=== PATIENT | male | born 1960 | race Caucasian/White ===

== ENCOUNTER 2017-07-12 10:52 | Inpatient (IN) | payer MEDICAID ==
[2017-07-12] MEDS: SODIUM CHLORIDE 0.9% 1L BAG IV* (12:06)
[2017-07-12] MEDS: ACETAMINOPHEN 325 MG TAB PO ×2 (12:12→17:49)
[2017-07-12 12:15] LABS: WHITE BLOOD COUNT 22.6 10^3/ul (4.8-10.8)
[2017-07-12 12:15] LABS: ABNORMAL IP MESSAGE 1; HEMATOCRIT 38.3 % (42.0-52.0); HEMOGLOBIN 13.9 g/dl (14.0-18.0); MEAN CORPUSCULAR HEMOGLOBIN 30.9 pg (29.0-33.0); MEAN CORPUSCULAR HGB CONC 36.3 g/dl (32.0-37.0); MEAN CORPUSCULAR VOLUME 85.1 fl (82.0-101.0); MEAN PLATELET VOLUME 10.4 fl (7.4-10.4); PLATELET COUNT 188 10^3/UL (140-415); POSITIVE DIFF @See below; RED CELL DISTRIBUTION WIDTH 13.3 % (11.5-14.5)
[2017-07-12 12:18] LABS: ADD MAN DIFF? YES
[2017-07-12 12:25] LABS: ADD UMIC YES; UR ASCORBIC ACID 20 mg/dL (NEGATIVE); UR BACTERIA FEW /HPF (NONE SEEN); UR BILIRUBIN (Dip) NEGATIVE (NEGATIVE); UR BLOOD (Dip) 3+ mg/dL (NEGATIVE); UR CLARITY TURBID (CLEAR); UR COLOR AMBER (YELLOW); UR GLUCOSE (Dip) 1+ mg/dL (NEGATIVE); UR KETONES (Dip) TRACE mg/dL (NEGATIVE); UR LEUKOCYTE ESTERASE (Dip) 2+ Leu/ul (NEGATIVE); UR MUCUS MANY /HPF (NONE SEEN); UR NITRITE (Dip) NEGATIVE (NEGATIVE); UR NONSQUAMOUS EPITHELIAL CELL 2 /HPF (NONE SEEN); UR RBC 55 /HPF (0-5); UR SPECIFIC GRAVITY (Dip) 1.026 (1.003-1.030); UR TOTAL PROTEIN (Dip) 2+ mg/dl (NEGATIVE); UR UROBILINOGEN (Dip) 1+ mg/dL (NEGATIVE); UR WBC > 182 /HPF (0-5)
[2017-07-12 12:27] LABS: INR 1.09; PROTIME 14.2 Sec (11.9-14.9); PT RATIO 1.1
[2017-07-12 12:29] LABS: PARTIAL THROMBOPLASTIN TIME 33.7 Sec (25.0-35.0)
[2017-07-12 12:33] LABS: ALANINE AMINOTRANSFERASE 89 IU/L (13-69); ALBUMIN 4.4 g/dl (3.3-4.9); ALBUMIN/GLOBULIN RATIO 1.22; ALKALINE PHOSPHATASE 112 IU/L (42-121); ANION GAP 17 (8-16); ASPARTATE AMINO TRANSFERASE 36 IU/L (15-46); BILIRUBIN,INDIRECT 1.6 mg/dl (0-1.1); BILIRUBIN,TOTAL 1.6 mg/dl (0.2-1.3); BLOOD UREA NITROGEN 10 mg/dl (7-20); CARBON DIOXIDE 20 mmol/L (21-31); CHLORIDE 105 mmol/L (97-110); CREATININE 0.88 mg/dl (0.61-1.24); GLUCOSE 159 mg/dl (70-220); SODIUM 139 mmol/L (135-144)
[2017-07-12 12:36] LABS: ANISOCYTOSIS 1+ (0-0); BAND NEUTROPHILS #M 6.1 10^3/ul (0.0-0.6); BAND NEUTROPHILS % (M) 27 % (0-4); GIANT THROMBO% (M) 2 % (0-0); LYMPHOCYTES #M 2.2 10^3/ul (0.8-2.9); LYMPHOCYTES % (M) 10 % (15-51); MICROCYTOSIS 1+ (0-0); MONOCYTE #M 0.2 10^3/ul (0.3-0.9); MONOCYTES % (M) 1 % (0-11); PLATELET ESTIMATE NORMAL; POLYCHROMASIA 1+ (0-0); SEG NEUT #M 15.4 10^3/ul (1.6-7.5); SEGMENTED NEUTROPHILS (M) % 62 % (39-77); SMUDGE%M 10 % (0-0)
[2017-07-12 12:53] LABS: POTASSIUM 2.9 mmol/L (3.5-5.1); TROPONIN-I < 0.012 ng/ml (0.00-0.12)
[2017-07-12 12:54] LABS: LACTIC ACID 3.5 mmol/L (0.5-2.0)
[2017-07-12] MEDS: CEFTRIAXONE 1 GM/50 ML (PMX) 50 ML IVPB (13:09)
[2017-07-12] MEDS: POTASSIUM CHLORIDE (SR) 20 MEQ TAB PO (13:48)
[2017-07-12] MEDS: ONDANSETRON 4 MG INJ IV (13:48)
[2017-07-12] MEDS: HYDROmorphONE 0.5 MG/0.5 ML SYG IV (13:49)
[2017-07-12] MEDS ORDERED: ACETAMINOPHEN 325 MG TAB PO (14:30)
[2017-07-12] MEDS ORDERED: ONDANSETRON 4 MG INJ IV (14:30)
[2017-07-12 14:42] LABS: LACTIC ACID 2.1 mmol/L (0.5-2.0)
[2017-07-12] MEDS ORDERED: GLUCOSE GEL 15 GRAM TUBE BUCCAL (16:00)
[2017-07-12] MEDS ORDERED: NITROGLYCERIN (SL) 0.4 MG TAB SL (16:00)
[2017-07-12] MEDS ORDERED: DOCUSATE SODIUM 100 MG CAP PO (16:00)
[2017-07-12] MEDS ORDERED: GLUCAGON 1 MG INJ IM (16:00)
[2017-07-12] MEDS ORDERED: NACL 0.9% 3 ML SYG IV (16:00)
[2017-07-12] MEDS ORDERED: DEXTROSE 50% 50 ML SYRINGE IV ×2 (16:00)
[2017-07-12] MEDS ORDERED: GLUCOSE GEL 15 GRAM TUBE PO ×2 (16:00)
[2017-07-12] MEDS ORDERED: ALBUTEROL/IPRATROPIUM (NEB) 3 ML AMP HHN (16:00)
[2017-07-12] MEDS ORDERED: LORAZEPAM 2 MG INJ IV (16:00)
[2017-07-12] MEDS ORDERED: NA PHOSPHATE/BIPHOS 133 ML ENEMA PR (16:00)
[2017-07-12] MEDS ORDERED: hydrALAzine 20 MG INJ IV (16:00)
[2017-07-12] MEDS: morphine 2 MG INJ IV (16:24)
[2017-07-12] MEDS: SOD CHLORIDE 0.9% 1,000 ML IV (16:29)
[2017-07-12] MEDS ORDERED: INSULIN ASPART [NOVOLOG] 3 ML PEN SC (17:00)
[2017-07-12 17:04] LABS: LACTIC ACID 2.8 mmol/L (0.5-2.0)
[2017-07-12] MEDS: FAMOTIDINE 20 MG TAB PO (17:05)
[2017-07-12] MEDS: HYDROCODONE/APAP (5/325) TAB PO (17:05)
[2017-07-12] MEDS: INSULIN ASPART [NOVOLOG] 3 ML PEN SC ×2 (17:46→20:47)
[2017-07-12 18:34] LABS: FREE T4 (FREE THYROXINE) 1.12 ng/dl (0.64-1.79)
[2017-07-12 18:38] LABS: LACTIC ACID 2.9 mmol/L (0.5-2.0)
[2017-07-12 20:37] LABS: LACTIC ACID 2.3 mmol/L (0.5-2.0)
[2017-07-12] MEDS: PHENAZOPYRIDINE 200 MG TAB PO (20:42)
[2017-07-12] MEDS: CEFEPIME 2GM/50 ML (PMX) 50 ML IVPB (20:42)
[2017-07-12] MEDS: HEPARIN 5,000 UNIT/0.5 ML VIAL SC (20:44)
[2017-07-13] MEDS: HYDROCODONE/APAP (5/325) TAB PO ×3 (00:13→22:53)
[2017-07-13 01:20] LABS: LACTIC ACID 1.7 mmol/L (0.5-2.0)
[2017-07-13] MEDS: SOD CHLORIDE 0.9% 1,000 ML IV ×2 (01:44→13:14)
[2017-07-13] MEDS: ACCU-CHEK XX (02:00)
[2017-07-13 05:07] LABS: WHITE BLOOD COUNT 27.3 10^3/ul (4.8-10.8)
[2017-07-13 05:07] LABS: ABNORMAL IP MESSAGE 1; HEMATOCRIT 34.1 % (42.0-52.0); HEMOGLOBIN 11.8 g/dl (14.0-18.0); MEAN CORPUSCULAR HEMOGLOBIN 30.2 pg (29.0-33.0); MEAN CORPUSCULAR HGB CONC 34.6 g/dl (32.0-37.0); MEAN CORPUSCULAR VOLUME 87.2 fl (82.0-101.0); MEAN PLATELET VOLUME 10.6 fl (7.4-10.4); PLATELET COUNT 138 10^3/UL (140-415); POSITIVE DIFF @See below; RED BLOOD COUNT 3.91 10^6/ul (4.70-6.10); RED CELL DISTRIBUTION WIDTH 13.8 % (11.5-14.5)
[2017-07-13 05:21] LABS: ADD MAN DIFF? YES
[2017-07-13 05:27] LABS: LACTIC ACID 1.5 mmol/L (0.5-2.0)
[2017-07-13 05:45] LABS: ANION GAP 15 (8-16); BLOOD UREA NITROGEN 11 mg/dl (7-20); CALCIUM 7.8 mg/dl (8.4-10.2); CARBON DIOXIDE 20 mmol/L (21-31); CHLORIDE 110 mmol/L (97-110); CHOL/HDL RATIO 2.2 RATIO; CHOLESTEROL 74 mg/dl (100-200); CREATININE 0.74 mg/dl (0.61-1.24); GLUCOSE 143 mg/dl (70-220); HDL CHOLESTEROL 33 mg/dl (28-71); LDL CHOLESTEROL,CALCULATED 28 mg/dl; MAGNESIUM 1.8 mg/dl (1.7-2.5); PHOSPHORUS 2.7 mg/dl (2.5-4.9); POTASSIUM 3.6 mmol/L (3.5-5.1); SODIUM 141 mmol/L (135-144); TRIGLYCERIDES 65 mg/dl (0-149)
[2017-07-13 06:49] LABS: THYROID STIMULATING HORMONE 0.709 MIU/L (0.465-4.680)
[2017-07-13 06:58] LABS: HEMOGLOBIN A1C 5.7 % (0-5.9)
[2017-07-13 07:53] LABS: BAND NEUTROPHILS #M 7.3 10^3/ul (0.0-0.6); BAND NEUTROPHILS % (M) 27 % (0-4); GIANT THROMBO% (M) 1 % (0-0); LYMPHOCYTES #M 2.1 10^3/ul (0.8-2.9); LYMPHOCYTES % (M) 8 % (15-51); MONOCYTE #M 0.8 10^3/ul (0.3-0.9); MONOCYTES % (M) 3 % (0-11); PLATELET ESTIMATE DECREASED; SEG NEUT #M 18.9 10^3/ul (1.6-7.5); SEGMENTED NEUTROPHILS (M) % 62 % (39-77); SMUDGE%M 13 % (0-0)
[2017-07-13] MEDS: PHENAZOPYRIDINE 200 MG TAB PO ×2 (08:12→13:19)
[2017-07-13] MEDS: FAMOTIDINE 20 MG TAB PO (08:12)
[2017-07-13] MEDS: CEFEPIME 2GM/50 ML (PMX) 50 ML IVPB (08:13)
[2017-07-13] MEDS: HEPARIN 5,000 UNIT/0.5 ML VIAL SC ×2 (08:23→20:35)
[2017-07-13] MEDS: INSULIN ASPART [NOVOLOG] 3 ML PEN SC ×3 (08:43→18:35)
[2017-07-13 08:46] LABS: LACTIC ACID 1.4 mmol/L (0.5-2.0)
[2017-07-13 11:49] LABS: LACTIC ACID 1.1 mmol/L (0.5-2.0)
[2017-07-13] MEDS: ONDANSETRON 4 MG INJ IV (13:22)
[2017-07-13] MEDS ORDERED: morphine LIQ (10 MG/5 ML) CUP PO (14:00)
[2017-07-13] MEDS: TAMSULOSIN (SR) 0.4 MG CAP PO (20:33)
[2017-07-13] MEDS: CEFTRIAXONE 1 GM/50 ML (PMX) 50 ML IVPB (20:33)
[2017-07-14] MEDS: ACCU-CHEK XX (02:00)
[2017-07-14 05:29] LABS: ADD MAN DIFF? NO
[2017-07-14 05:36] LABS: WHITE BLOOD COUNT 19.7 10^3/ul (4.8-10.8)
[2017-07-14 05:36] LABS: HEMATOCRIT 32.7 % (42.0-52.0); HEMOGLOBIN 11.4 g/dl (14.0-18.0); MEAN CORPUSCULAR HEMOGLOBIN 30.3 pg (29.0-33.0); MEAN CORPUSCULAR HGB CONC 34.9 g/dl (32.0-37.0); MEAN PLATELET VOLUME 11.3 fl (7.4-10.4); PLATELET COUNT 116 10^3/UL (140-415); RED BLOOD COUNT 3.76 10^6/ul (4.70-6.10); RED CELL DISTRIBUTION WIDTH 13.8 % (11.5-14.5)
[2017-07-14 05:50] LABS: ANION GAP 11 (8-16); BLOOD UREA NITROGEN 11 mg/dl (7-20); CALCIUM 8.1 mg/dl (8.4-10.2); CARBON DIOXIDE 24 mmol/L (21-31); CHLORIDE 110 mmol/L (97-110); CREATININE 0.71 mg/dl (0.61-1.24); GLUCOSE 123 mg/dl (70-220); POTASSIUM 3.3 mmol/L (3.5-5.1); SODIUM 142 mmol/L (135-144)
[2017-07-14] MEDS: HEPARIN 5,000 UNIT/0.5 ML VIAL SC ×2 (08:31→20:18)
[2017-07-14 13:36] LABS: TROPONIN-I < 0.012 ng/ml (0.00-0.12)
[2017-07-14] MEDS: MAGNESIUM HYDROXIDE 30ML CUP PO (13:52)
[2017-07-14] MEDS: SOD CHLORIDE 0.9% 100 ML (15:08)
[2017-07-14] MEDS: IOHEXOL 100 ML (15:09)
[2017-07-14] MEDS: IOHEXOL 350MG/ML 50 ML BTL (15:10)
[2017-07-14] MEDS: POTASSIUM CHLORIDE (SR) 20 MEQ TAB PO (15:39)
[2017-07-14] MEDS: TAMSULOSIN (SR) 0.4 MG CAP PO (20:14)
[2017-07-14] MEDS: CEFTRIAXONE 1 GM/50 ML (PMX) 50 ML IVPB (20:14)
[2017-07-15] MEDS: ACCU-CHEK XX (02:00)
[2017-07-15 05:52] LABS: ADD MAN DIFF? NO
[2017-07-15 06:06] LABS: BASOPHILS % 0.3 % (0.0-2.0); EOSINOPHILS # 0.2 10^3/ul (0.0-0.5); EOSINOPHILS % 1.9 % (0.0-7.0); HEMOGLOBIN 11.6 g/dl (14.0-18.0); LYMPHOCYTES # 1.4 10^3/ul (0.8-2.9); LYMPHOCYTES % 11.4 % (15.0-51.0); MEAN CORPUSCULAR HEMOGLOBIN 30.2 pg (29.0-33.0); MEAN CORPUSCULAR HGB CONC 35.2 g/dl (32.0-37.0); MEAN CORPUSCULAR VOLUME 85.9 fl (82.0-101.0); MEAN PLATELET VOLUME 11.5 fl (7.4-10.4); MONOCYTES % 8.7 % (0.0-11.0); NEUTROPHIL # 9.1 10^3/ul (1.6-7.5); NEUTROPHILS % 76.9 % (39.0-77.0); PLATELET COUNT 130 10^3/UL (140-415); RED BLOOD COUNT 3.84 10^6/ul (4.70-6.10); RED CELL DISTRIBUTION WIDTH 13.7 % (11.5-14.5)
[2017-07-15 06:06] LABS: WHITE BLOOD COUNT 11.9 10^3/ul (4.8-10.8)
[2017-07-15 06:49] LABS: ANION GAP 12 (8-16); BLOOD UREA NITROGEN 11 mg/dl (7-20); CALCIUM 8.6 mg/dl (8.4-10.2); CARBON DIOXIDE 23 mmol/L (21-31); CHLORIDE 109 mmol/L (97-110); CREATININE 0.68 mg/dl (0.61-1.24); GLUCOSE 112 mg/dl (70-220); POTASSIUM 3.6 mmol/L (3.5-5.1); SODIUM 140 mmol/L (135-144)
[2017-07-15] MEDS: INFLUENZA VIRUS VACCINE 0.5 ML (DISPENSING) IM* (08:38)
[2017-07-15] MEDS: HEPARIN 5,000 UNIT/0.5 ML VIAL SC ×2 (08:39→20:59)
[2017-07-15] MEDS: TAMSULOSIN (SR) 0.4 MG CAP PO (20:57)
[2017-07-15] MEDS: CEFTRIAXONE 1 GM/50 ML (PMX) 50 ML IVPB (20:57)
[2017-07-16] MEDS: ACCU-CHEK XX (02:00)
[2017-07-16] MEDS ORDERED: BACLOFEN 10 MG TAB PO (03:00)
[2017-07-16 04:50] LABS: ADD MAN DIFF? NO
[2017-07-16 04:57] LABS: BASOPHIL # 0.1 10^3/ul (0.0-0.1); BASOPHILS % 0.6 % (0.0-2.0); EOSINOPHILS # 0.4 10^3/ul (0.0-0.5); EOSINOPHILS % 4.2 % (0.0-7.0); HEMATOCRIT 34.5 % (42.0-52.0); HEMOGLOBIN 12.3 g/dl (14.0-18.0); LYMPHOCYTES # 1.7 10^3/ul (0.8-2.9); LYMPHOCYTES % 17.3 % (15.0-51.0); MEAN CORPUSCULAR HEMOGLOBIN 30.1 pg (29.0-33.0); MEAN CORPUSCULAR HGB CONC 35.7 g/dl (32.0-37.0); MEAN CORPUSCULAR VOLUME 84.4 fl (82.0-101.0); MEAN PLATELET VOLUME 11.2 fl (7.4-10.4); MONOCYTE # 1.2 10^3/ul (0.3-0.9); NEUTROPHIL # 6.1 10^3/ul (1.6-7.5); NEUTROPHILS % 63.4 % (39.0-77.0); PLATELET COUNT 134 10^3/UL (140-415); POSITIVE DIFF @See below; RED BLOOD COUNT 4.09 10^6/ul (4.70-6.10); RED CELL DISTRIBUTION WIDTH 13.2 % (11.5-14.5)
[2017-07-16 04:57] LABS: WHITE BLOOD COUNT 9.6 10^3/ul (4.8-10.8)
[2017-07-16 05:29] LABS: ANION GAP 13 (8-16); BLOOD UREA NITROGEN 14 mg/dl (7-20); CALCIUM 8.6 mg/dl (8.4-10.2); CARBON DIOXIDE 24 mmol/L (21-31); CHLORIDE 109 mmol/L (97-110); CREATININE 0.65 mg/dl (0.61-1.24); GLUCOSE 117 mg/dl (70-220); POTASSIUM 3.5 mmol/L (3.5-5.1); SODIUM 142 mmol/L (135-144)
[2017-07-16] MEDS: HEPARIN 5,000 UNIT/0.5 ML VIAL SC ×2 (08:22→21:21)
[2017-07-16] MEDS: LEVOFLOXACIN 500 MG TAB PO (14:29)
[2017-07-16] MEDS: TAMSULOSIN (SR) 0.4 MG CAP PO (21:20)
[2017-07-17] MEDS: ACCU-CHEK XX (02:00)
[2017-07-17 05:20] LABS: ADD MAN DIFF? NO
[2017-07-17 05:34] LABS: WHITE BLOOD COUNT 9.5 10^3/ul (4.8-10.8)
[2017-07-17 05:34] LABS: BASOPHIL # 0.1 10^3/ul (0.0-0.1); BASOPHILS % 0.5 % (0.0-2.0); EOSINOPHILS # 0.4 10^3/ul (0.0-0.5); EOSINOPHILS % 4.6 % (0.0-7.0); HEMATOCRIT 34.8 % (42.0-52.0); HEMOGLOBIN 12.3 g/dl (14.0-18.0); LYMPHOCYTES # 2.2 10^3/ul (0.8-2.9); LYMPHOCYTES % 22.9 % (15.0-51.0); MEAN CORPUSCULAR HEMOGLOBIN 30.4 pg (29.0-33.0); MEAN CORPUSCULAR HGB CONC 35.3 g/dl (32.0-37.0); MEAN CORPUSCULAR VOLUME 85.9 fl (82.0-101.0); MEAN PLATELET VOLUME 10.9 fl (7.4-10.4); MONOCYTES % 10.8 % (0.0-11.0); NEUTROPHIL # 5.5 10^3/ul (1.6-7.5); NEUTROPHILS % 57.4 % (39.0-77.0); PLATELET COUNT 174 10^3/UL (140-415); RED BLOOD COUNT 4.05 10^6/ul (4.70-6.10); RED CELL DISTRIBUTION WIDTH 13.2 % (11.5-14.5)
[2017-07-17] MEDS: LEVOFLOXACIN 500 MG TAB PO (05:41)
[2017-07-17 05:55] LABS: ANION GAP 14 (8-16); BLOOD UREA NITROGEN 14 mg/dl (7-20); CALCIUM 8.5 mg/dl (8.4-10.2); CARBON DIOXIDE 23 mmol/L (21-31); CHLORIDE 109 mmol/L (97-110); GLUCOSE 127 mg/dl (70-220); POTASSIUM 3.7 mmol/L (3.5-5.1); SODIUM 142 mmol/L (135-144)
[2017-07-17] MEDS: HEPARIN 5,000 UNIT/0.5 ML VIAL SC ×2 (08:17→21:04)
[2017-07-17 20:29] LABS: PROSTATE SPECIFIC ANTIGEN 17.5 ng/ml (0.0-4.0)
[2017-07-17] MEDS: TAMSULOSIN (SR) 0.4 MG CAP PO (21:03)
[2017-07-18] MEDS: ACCU-CHEK XX (01:45)
[2017-07-18 05:38] LABS: ADD MAN DIFF? NO
[2017-07-18 05:42] LABS: WHITE BLOOD COUNT 10.1 10^3/ul (4.8-10.8)
[2017-07-18 05:42] LABS: BASOPHIL # 0.1 10^3/ul (0.0-0.1); BASOPHILS % 0.7 % (0.0-2.0); EOSINOPHILS # 0.5 10^3/ul (0.0-0.5); EOSINOPHILS % 4.4 % (0.0-7.0); HEMATOCRIT 34.9 % (42.0-52.0); HEMOGLOBIN 12.1 g/dl (14.0-18.0); LYMPHOCYTES # 2.6 10^3/ul (0.8-2.9); LYMPHOCYTES % 25.2 % (15.0-51.0); MEAN CORPUSCULAR HGB CONC 34.7 g/dl (32.0-37.0); MEAN CORPUSCULAR VOLUME 86.4 fl (82.0-101.0); MEAN PLATELET VOLUME 10.6 fl (7.4-10.4); MONOCYTES % 9.6 % (0.0-11.0); NEUTROPHIL # 5.6 10^3/ul (1.6-7.5); NEUTROPHILS % 55.3 % (39.0-77.0); PLATELET COUNT 204 10^3/UL (140-415); RED BLOOD COUNT 4.04 10^6/ul (4.70-6.10); RED CELL DISTRIBUTION WIDTH 13.4 % (11.5-14.5)
[2017-07-18] MEDS: LEVOFLOXACIN 500 MG TAB PO (05:51)
[2017-07-18 06:13] LABS: ANION GAP 17 (8-16); BLOOD UREA NITROGEN 15 mg/dl (7-20); CALCIUM 8.7 mg/dl (8.4-10.2); CARBON DIOXIDE 26 mmol/L (21-31); CHLORIDE 107 mmol/L (97-110); CREATININE 0.74 mg/dl (0.61-1.24); GLUCOSE 132 mg/dl (70-220); POTASSIUM 4.3 mmol/L (3.5-5.1); SODIUM 146 mmol/L (135-144)
[2017-07-18] MEDS: TAMSULOSIN (SR) 0.4 MG CAP PO (08:45)
[2017-07-18] MEDS: HEPARIN 5,000 UNIT/0.5 ML VIAL SC (08:50)
[2017-07-18] MEDS ORDERED: DOCUSATE SODIUM 100 MG CAP PO (21:00)
[2017-07-20 20:17] LABS: PSA, FREE 1.4 ng/mL
== END 2017-07-18 19:45 | disposition home or self-care (01) | DRG 872 ==
LOC: E/R 10:52 → MS1 14:17
PROVIDERS: Hospitalist
DX: A41.51 Sepsis due to Escherichia coli [E. coli] (principal); E87.2 Acidosis; N39.0 Urinary tract infection, site not specified; I10 Essential (primary) hypertension; E11.9 Type 2 diabetes mellitus without complications; I95.1 Orthostatic hypotension
CPT/HCPCS: 36415; 71045; 71275; 76775; 80048; 80053; 80061; 81001; 82962; 83036; 83605; 83735; 84100; 84153; 84154; 84439; 84443; 84484; 85025; 85378; 85610; 85730; 87040; 87086; 87400; 93005; 93306; 93880; 96374; 96375; 99291-25